=== PATIENT | male | born 1945 | race Caucasian/White ===

== ENCOUNTER 2021-12-08 13:21 | Outpatient (CLI) | payer SELFPAY ==
[2021-12-08 13:28] VITALS: BMI 25.1
[2021-12-08 15:08] VITALS: BP 109/64; PULSE 65; RESP 18; TEMP 36.6; O2SAT 96
== END 2021-12-08 13:22 | disposition home or self-care (01) ==
LOC: OPS 13:25
PROVIDERS: PCP Internal Medicine; Visit Provider Internal Medicine
DX: U07.1 COVID-19 (principal)
CPT/HCPCS: 96365

== ENCOUNTER 2022-01-10 08:07 | Emergency (ER) | payer MEDICARE, SELFPAY ==
[2022-01-10 08:28] VITALS: BP 137/84; PULSE 70; RESP 18; TEMP 37.2; O2SAT 96; BMI 25.0
--- NOTE | 2022-01-10 08:28 | CTR_ITS ---
PROCEDURE INFORMATION: Exam: CT Abdomen And Pelvis Without Contrast Exam date and time: 01/10/2022 8:28 AM Age: 76 years old Clinical indication: Abdominal pain; Flank; Left; Additional info: Flank pain TECHNIQUE: Imaging protocol: Computed tomography of the abdomen and pelvis without contrast. Total images: 321 Radiation optimization: All CT scans at this facility use at least one of these dose optimization techniques: automated exposure control; mA and/or kV adjustment per patient size (includes targeted exams where dose is matched to clinical indication); or iterative reconstruction. COMPARISON: CR XR KUB [id number] 03/16/2019 8:26 AM RADIATION DOSE METRICS: Total DLP (mGy-cm): 1128.63 FINDINGS: Diaphragm: A small hiatal hernia is present. Liver: Hepatic steatosis is evident. Gallbladder and bile ducts: Cholelithiasis is present without cholecystitis. No gallbladder wall thickening or pericholecystic fluid collection. Pancreas: Normal. No ductal dilation. Spleen: Normal. No splenomegaly. Adrenal glands: 1.8 cm benign right adrenal adenoma, no further followup necessary. Kidneys and ureters: Multiple bilateral renal cysts incompletely evaluated due to no IV contrast. 6 mm Largest left kidney stone which is nonobstructing and found in a left kidney that has multiple non-obstructing kidney stones. No ureteral calculi detected. Stomach and bowel: Unremarkable. No obstruction. No mucosal thickening. Appendix: No evidence of appendicitis. Intraperitoneal space: Unremarkable. No free air. No significant fluid collection. Vasculature: Unremarkable. No abdominal aortic aneurysm. Lymph nodes: Unremarkable. No enlarged lymph nodes. Urinary bladder: Multiple bladder calculi noted. There is nonspecific urinary bladder wall thickening, under distention versus cystitis. Reproductive: Prostatomegaly noted. Bones/joints: Bridging osteophytes are seen spanning the SI joints bilaterally. Spinal degenerative changes are evident. Disc degeneration is most notable at L5/S1. Spondylosis is noted with exuberant anterior and lateral osteophyte formation. Facet joint degenerative changes are present. Soft tissues: Postsurgical changes noted in the right inguinal region. CT/CT kidney stone [id number] IMPRESSION: 1. 6 mm Largest left kidney stone which is nonobstructing and found in a left kidney that has multiple non-obstructing kidney stones. No ureteral calculi detected. 2. Multiple bladder calculi noted. 3. There is nonspecific urinary bladder wall thickening, under distention versus cystitis. Consider urinalysis. 4. Prostatomegaly noted. 5. Cholelithiasis is present without cholecystitis. No gallbladder wall thickening or pericholecystic fluid collection. COMMENTS: Consistent with the [employer]'s Incidental Findings Committee white paper (J Am Ender Radiol 2017): For any incidental adrenal lesion greater than 1 cm but less than 4 cm classified in this report as benign, likely benign, or containing fat (including classification as an adenoma or myelolipoma), no follow-up imaging is recommended per consensus recommendations based on imaging criteria. Further lab evaluation could be pursued if warranted based on clinical findings.
--- NOTE | 2022-01-10 08:42 | ED_ITS ---
HPI - Male Genitourinary General: Chief complaint: Urogenital-Male Stated complaint: Kidney Stones Time Seen by Provider: 01/10/22 08:25 Source: patient Mode of arrival: ambulatory History of Present Illness: 76-year-old male presents emergency room with complaints of dysuria and suprapubic discomfort. He had been treated as an o utpatient for nephrolithiasis he actually passed a couple of stones. He also has some BPH. He states he has been urinating in small amounts with hematuria and discomfort. He does not have any discomfort except with urination. He is not on any blood thinners. He denies any fever sweats or chills. Onset (ago): day(s) Duration: constant Location: abdomen (Suprapubic) Severity: moderate Quality: aching Relieving factors: none Exacerbating factors: urination Associated symptoms: Reports dysuria and hematuria; Deny discharge, fevers/chills, nausea, rash, swelling, urinary incontinence, urinary retention, mass or vomiting Review of Systems Const: Denies: fever(s), chills, body aches, change in appetite, fatigue or malaise ENMT: Denies: throat pain, ear or mastoid pain, nasal discharge or nasal congestion Card: Denies: chest pain, edema, dyspnea on exertion or orthopnea Resp: Denies: dyspnea, productive cough or non-productive cough GI: Denies: nausea or vomiting : Reports: difficulty urinating, dysuria, urinary frequency, urinary urgency, difficulty starting urination, oliguria and hematuria; Denies: urinary incontinence Skin/Breast: Denies: rash or pruritus PFSH ED PFSH: Medical History Bladder stone BPH loc w urin obs/LUTS Elevated PSA Nephrolithiasis Social History Smoking and tobacco status: current every day smoker smokeless tobacco Smokeless tobacco user: chewing tobacco Alcohol intake: never Physical Exam Const: GENERAL APPEARANCE: cooperative and comfortable ORIENTATION/CONSCIOUSNESS: Yes awake, Yes oriented to person, Yes oriented to place and Yes oriented to time HENMT: COMMON NORMALS: normocephalic, atraumatic and hearing grossly normal bilaterally HEAD & SCALP: normocephalic and atraumatic Neck/C-Spine: COMMON NORMALS: no JVD Resp: COMMON NORMALS: normal respiratory effort, No retractions, No use of accessory muscles and clear to auscultation bilaterally AUSCULTATION: clear to auscultation bilaterally Cardio: COMMON NORMALS: no JVD, regular rate, regular rhythm and No murmurs present (Cardio) RATE: regular rate RHYTHM: regular rhythm GI: COMMON NORMALS: Soft to palpation and No hepatosplenomegaly present AUSCULTATION: Yes normoactive bowel sounds PALPATION: Yes Soft to palpation, No Tenderness to palpation present (GI), No Guarding due to palpation present (GI) and Yes No hepatosplenomegaly present : COMMON NORMALS: Yes no CVA tenderness BLADDER/KIDNEY EXAM: Yes no CVA tenderness Back/Pelvis: COMMON NORMALS: no CVA tenderness Extremity: COMMON NORMALS: normal to inspection, capillary refill normal, no clubbing, cyanosis or edema, no calf tenderness and no pedal edema Neuro: SENSORIUM/ORIENTATION: Yes oriented to person, Yes oriented to place and Yes oriented to time Skin: COMMON NORMALS: no rashes or lesions noted GENERAL SKIN EXAM: no rashes or lesions noted Course Vital Signs: Vital signs: Vital Signs Temperature 98.9 F 01/10/22 08:28 Pulse Rate 70 01/10/22 08:28 Respiratory Rate 18 01/10/22 08:28 Blood Pressure 120/71 01/10/22 10:35 Pulse Oximetry 96 01/10/22 08:28 MDM - Male Medical Decision Making Significantly large prostate large number of bladder stones. Reviewed imaging with Dr. Flanagan will place Martins to prevent urinary retention. We will put hydrocodone for pain Zofran as needed for nausea he has a follow-up appoint with Dr. Flanagan on Wednesday. Dr. Flanagan will make further plans. Discussed with the patient that if they are not able to get the bladder to drain regularly should return. Continue taking tamsulosin twice daily. Medical Records I reviewed the patient's medical records. Lab Data I reviewed the patient's lab results. : 01/10/22 08:56 01/10/22 08:56 Radiology Impressions Abdomen/Pelvis CT 01/10/22 08:28 IMPRESSION: 1. 6 mm Largest left kidney stone which is nonobstructing and found in a left kidney that has multiple non-obstructing kidney stones. No ureteral calculi detected. 2. Multiple bladder calculi noted. 3. There is nonspecific urinary bladder wall thickening, under distention versus cystitis. Consider urinalysis. 4. Prostatomegaly noted. 5. Cholelithiasis is present without cholecystitis. No gallbladder wall thickening or pericholecystic fluid collection. COMMENTS: Consistent with the [employer]'s Incidental Findings Committee white paper (J Am Ender Radiol 2017): For any incidental adrenal lesion greater than 1 cm but less than 4 cm classified in this report as benign, likely benign, or containing fat (including classification as an adenoma or myelolipoma), no follow-up imaging is recommended per consensus recommendations based on imaging criteria. Further lab evaluation could be pursued if warranted based on clinical findings. Laboratory Results WBC 9.7 10^3/uL (4.0-10.0) 01/10/22 08:56 RBC 5.47 10^6/uL (4.1-5.3) H 01/10/22 08:56 Hgb 15.5 g/dL (11.7-16.6) 01/10/22 08:56 Hct 48.9 % (42.0-52.0) 01/10/22 08:56 MCV 89.4 fl (80-94) 01/10/22 08:56 MCH 28.3 pg (28.0-34.0) 01/10/22 08:56 MCHC 31.7 g/dL (30.0-36.0) 01/10/22 08:56 RDW 14.3 % (12.1-15.1) 01/10/22 08:56 Plt Count 174 10^3/cmm (130-400) 01/10/22 08:56 MPV 11.6 fL (7.4-10.4) H 01/10/22 08:56 Neut % (Auto) 72.8 % 01/10/22 08:56 Lymph % (Auto) 17.7 % 01/10/22 08:56 [place] % (Auto) 6.0 % 01/10/22 08:56 Eos % (Auto) 2.6 % 01/10/22 08:56 Baso % (Auto) 0.5 % 01/10/22 08:56 Neut # (Auto) 7.09 10^3/uL (1.8-7.7) 01/10/22 08:56 Lymph # (Auto) 1.7 10^3/uL (0.8-4.8) 01/10/22 08:56 [place] # (Auto) 0.6 10^3/uL (0.2-0.9) 01/10/22 08:56 Eos # (Auto) 0.3 10^3/uL (0.0-0.8) 01/10/22 08:56 Baso # (Auto) 0.1 10^3/uL (0.0-0.1) 01/10/22 08:56 Nucleated RBC % (auto) 0 % 01/10/22 08:56 Nucleated RBCs # 0.0 /100WBC 01/10/22 08:56 Sodium 141 mmol/L (136-145) 01/10/22 08:56 Potassium 4.1 mmol/L (3.5-5.1) 01/10/22 08:56 Chloride 101 mmol/L (98-107) 01/10/22 08:56 Carbon Dioxide 28 mmol/L (22-29) 01/10/22 08:56 Anion Gap 16.1 (5-19) 01/10/22 08:56 BUN 16 mg/dL (8-23) 01/10/22 08:56 Creatinine 1.3 mg/dL (0.7-1.2) H 01/10/22 08:56 GFR Calculation Not Reportable 01/10/22 08:56 Glucose 124 mg/dL (65-115) H 01/10/22 08:56 Calculated Osmolality 295 mOsm/kg (285-295) 01/10/22 08:56 Calcium 9.4 mg/dL (8.5-10.5) 01/10/22 08:56 Urine Color Dark yellow (Yellow) 01/10/22 08:52 Urine Appearance Cloudy (CLEAR) 01/10/22 08:52 Urine pH 5 (5-7) 01/10/22 08:52 Ur Specific [place] 1.025 (1.005-1.030) 01/10/22 08:52 Urine Protein 3+ (Negative) H 01/10/22 08:52 Urine Glucose (UA) Norm (Normal) 01/10/22 08:52 Urine Ketones 1+ (Negative) H 01/10/22 08:52 Urine Blood 3+ (Negative) H 01/10/22 08:52 Urine Nitrate Negative (Negative) 01/10/22 08:52 Urine Bilirubin Neg (Negative) 01/10/22 08:52 Urine Urobilinogen Norm mg/dL (Negative) 01/10/22 08:52 Ur Leukocyte Esterase 1+ (Negative) H 01/10/22 08:52 Urine RBC Too numerous to cnt /hpf (0-2) H 01/10/22 08:52 Urine WBC 5-10 /hpf (0-5) H 01/10/22 08:52 Ur Squamous Epith Cells None /hpf (0-5) 01/10/22 08:52 Amorphous Sediment 1+ /hpf 01/10/22 08:52 Urine Bacteria 1+ /hpf (NONE) H 01/10/22 08:52 Discharge Plan Discharge Patient Disposition: Home Clinical Impression: Bladder stone, BPH loc w urin obs/LUTS, Nephrolithiasis Condition: Stable Prescriptions: New hydrocodone-acetaminophen 5-325 mg tablet 1 tab PO Q6H PRN (Reason: pain) Qty: 25 0RF Zofran 4 mg tablet 4 mg PO Q6H PRN (Reason: nausea and vomiting) Qty: 20 0RF tamsulosin 0.4 mg capsule 0.4 mg PO DAILY Qty: 30 0RF No Action Zyrtec 10 mg Tablet 10 mg PO DAILY PRN (Reason: Allergy Symptoms) 0RF levothyroxine 88 mcg Tablet 88 mcg PO DAILY 0RF Flomax 0.4 mg Capsule 0.4 mg PO BID 0RF Prilosec 20 mg Capsule,Delayed Release(Dr/Ec) 20 mg PO DAILY 0RF lisinopril-hydrochlorothiazide 10-12.5 mg Tablet 1 tab PO DAILY 0RF cefuroxime axetil 500 mg Tablet 500 mg PO BID 0RF Rx Instructions: x 7 days Vitamin D3 125 mcg (5,000 unit) Tablet 125 mcg PO DAILY 0RF Discharge Orders: Discharge ED (Routine); Ordered 01/10/22 Ordered By: Roger Villarreal Referrals: Jessica Schulte MD [Primary Care Provider] - Discharge Diet: Usual diet Discharge Activity: Resume usual activity Patient Instructions: Opioid Safety Activity Restrictions/Additional Instructions: Keep follow-up appointment with Dr. Flanagan as planned. If your catheter is not draining regularly return to the emergency room Coding Level of Care Code ED [employer] Director for Maddie Fwjanny Exam Comprehensive
[2022-01-10 09:12] LABS: Basophils # 0.1 10^3/uL (0.0-0.1); Basophils % 0.5 %; Eosinophils # 0.3 10^3/uL (0.0-0.8); Eosinophils % 2.6 %; Hematocrit 48.9 % (42.0-52.0); Hemoglobin 15.5 g/dL (11.7-16.6); Lymphocytes # 1.7 10^3/uL (0.8-4.8); Lymphocytes % 17.7 %; Mean Corpuscular HGB Conc 31.7 g/dL (30.0-36.0); Mean Corpuscular Hemoglobin 28.3 pg (28.0-34.0); Mean Corpuscular Volume 89.4 fl (80-94); Mean Platelet Volume 11.6 fL (7.4-10.4); Monocytes # 0.6 10^3/uL (0.2-0.9); Neutrophils # 7.09 10^3/uL (1.8-7.7); Neutrophils % 72.8 %; Nucleated Red Blood Cells % 0 %; Platelet Count 174 10^3/cmm (130-400); Red Blood Count 5.47 10^6/uL (4.1-5.3); Red Cell Distribution Width 14.3 % (12.1-15.1); White Blood Count 9.7 10^3/uL (4.0-10.0)
[2022-01-10 09:20] LABS: Glucose Urine UA Norm (Normal); Ketones Urine 1+ (Negative); Protein Urine 3+ (Negative); Specific Gravity, Urine 1.025 (1.005-1.030); Urine Appearance Cloudy (CLEAR); Urine Color Dark Yellow (Yellow); pH Urine 5 (5-7)
[2022-01-10 09:21] LABS: Add Urine Culture? Yes; Add Urine Microscopic? YES; Amorphous Sediment Urine 1+ /hpf; Bacteria Urine 1+ /hpf; Bilirubin Urine Neg (Negative); Blood Urine 3+ (Negative); Leukocyte Esterase Urine 1+ (Negative); Nitrate Urine Negative (Negative); RBC Urine TOO NUMEROUS TO CNT /hpf (0-2); Urobilinogen Urine Norm (Negative)
[2022-01-10 09:37] LABS: Anion Gap 16.1 (5-19); Blood Urea Nitrogen 16 mg/dL (8-23); Calcium 9.4 mg/dL (8.5-10.5); Carbon Dioxide 28 mmol/L (22-29); Chloride 101 mmol/L (98-107); Glucose 124 mg/dL (65-115); Osmolality Calculated 295 mOsm/kg (285-295); Potassium 4.1 mmol/L (3.5-5.1); Sodium 141 mmol/L (136-145)
--- NOTE | 2022-01-10 10:22 | P.MISC_ITS ---
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 ?Very large but benign feeling NEFTALI. ?PSA at time of biopsy = 8.0. ?Repeat July 2015 = 7.4. BLADDER CALCULUS August 2015 Approximally 6 or 7 bladder stones identified on cystoscopy during workup for gross hematuria. Tx: ?CYSTOLITHALOPAXY: large number of stones in the bladder. Transient POSTOP RETENTION. BPH/OBSTRUCTION CURRENT VISIT 01/10/2022: UROLOGY phone note (patient in the ED) Spoke with Dr. Will. Patient was complaining mostly of suprapubic discomfort and passing multiple bladder stones. CT scan was performed for hematuria. -No upper urinary tract obstruction -Huge prostate with multiple (dozens) of bladder stones with some probably in the prostatic urethra No evidence of sepsis. Plan was to treat pain, place Martins catheter for relief, keep appointment for Wednesday. Can make plans then for cystolitholapaxy etc. He is scheduled for clinic appointment on 01/12/2022 PRIOR VISITS 03/16/2019: UROLOGY follow-up visit Last visit was March 2017 for follow-up of urolithiasis with a history of prior cystolitholapaxy August 2015. KUB showed no recurrent bladder stones or renal stones. No progressive lower urinary tract symptoms. He was content with his voiding status. Discussed if doing well on follow-up visit would recommend no further follow-up. Back now for follow-up. Current data UA: Clear KUB: No evidence of stones bladder or kidneys Symptoms: Voiding well. ?Good force of stream. ?Feels like he empties. ?No gross hematuria etc. PVR was 22 mL Discussion: I think is a reasonable candidate now for return to clinic as needed status given his protracted follow-up. ?Without recurrence of stones. I'll see him back if he feels like there are any symptoms that are concerning to him or Dr. Schulte is concern. 03/16/2017: UROLOGY follow-up visit Last visit 12/19/2015 status post cystolitholapaxy 09/02/2015 followed by indwelling catheter placement due to clot retention; pass voiding trial 09/09/2015. Cystoscopy revealed a huge prostate. Was doing well with low symptoms. Current data UA: Clear KUB: No recurrent bladder stones or renal stones Symptoms: Minimal lower urinary tract symptoms. ?No gross hematuria or flank pain. ?No recurrent obstruction or retention. ?Content with current status. Discussion: Doing very well. ?Recheck in 2 years with KUB. ?If doing well that point no further follow-up. Call for increasing symptoms. ?Reviewed symptoms of concern
[2022-01-10 10:35] VITALS: BP 120/71
== END 2022-01-10 11:27 | disposition home or self-care (01) ==
PROVIDERS: Emergency Provider Family Medicine; PCP Internal Medicine
DX: N40.1 Benign prostatic hyperplasia with lower urinary tract symptoms (principal); N13.8 Other obstructive and reflux uropathy; N20.0 Calculus of kidney; N21.0 Calculus in bladder; F17.220 Nicotine dependence, chewing tobacco, uncomplicated; Z87.442 Personal history of urinary calculi
CPT/HCPCS: 51702; 74176; 80048; 81001; 85025; 87086; 99283

== ENCOUNTER 2022-01-11 17:03 | Emergency (ER) | payer MEDICARE, SELFPAY ==
[2022-01-11 17:13] VITALS: BP 132/86; PULSE 95; RESP 16; TEMP 36.4; O2SAT 92; BMI 24.8
--- NOTE | 2022-01-11 17:27 | ED_ITS ---
Documented by User: OBDULIO Vogel 01/11/22 18:50 HPI - Male Genitourinary General: Chief complaint: Urogenital-Male Stated complaint: Cathiter not working Time Seen by Provider: 01/11/22 17:18 History of Present Illness: Patient states catheter is quit draining. Associated symptoms: Deny nausea or vomiting Review of Systems Const: Denies: fever(s), chills or body aches Eyes: Denies: eye discomfort ENMT: Denies: throat pain Card: Denies: chest pain Resp: Denies: dyspnea GI: Denies: abdominal pain, nausea or vomiting : Reports: other (Complains of bladder pain on this Martins catheter not draining.) Skin/Breast: Denies: rash Neuro: Denies: headache(s) Psych: Denies: depression or suicidal ideation PFS ED PFSH: Medical History Bladder stone BPH loc w urin obs/LUTS Elevated PSA Nephrolithiasis Social History Smoking and tobacco status: current every day smoker smokeless tobacco Smokeless tobacco user: chewing tobacco Alcohol intake: never Physical Exam Const: COMMON NORMALS: no acute distress, patient oriented x3 and alert HENMT: COMMON NORMALS: normocephalic and external ears normal HEAD & SCALP: normocephalic EXTERNAL EAR: Yes external ears normal Eye: COMMON NORMALS: EOMs intact bilaterally Neck/C-Spine: COMMON NORMALS: no JVD Resp: COMMON NORMALS: normal respiratory effort and No use of accessory muscles Cardio: COMMON NORMALS: no JVD GI: INSPECTION: Yes normal to inspection : OTHER: Tenderness suprapubic area. Extremity: COMMON NORMALS: normal to inspection and full ROM Neuro: COMMON NORMALS: patient oriented x3 SENSORIUM/ORIENTATION: Yes alert Psych: COMMON NORMALS: mental status grossly normal Skin: COMMON NORMALS: no rashes or lesions noted GENERAL SKIN EXAM: no rashes or lesions noted Course Vital Signs: Vital signs: Vital Signs Temperature 97.6 F 01/11/22 17:13 Pulse Rate 95 01/11/22 17:13 Respiratory Rate 16 01/11/22 17:13 Blood Pressure 128/72 01/11/22 18:35 Pulse Oximetry 92 01/11/22 17:13 MDM - Male Medical Decision Making Blockage of Martins catheter from bladder stones. Martins catheter was removed, new one inserted patient able to urinate. Discharge Plan Discharge Patient Disposition: Home Clinical Impression: Bladder stone, BPH loc w urin obs/LUTS Condition: Stable Prescriptions: No Action hydrocodone-acetaminophen 5-325 mg tablet 1 tab PO Q6H PRN (Reason: pain) Qty: 25 0RF Zofran 4 mg tablet 4 mg PO Q6H PRN (Reason: nausea and vomiting) Qty: 20 0RF tamsulosin 0.4 mg capsule 0.4 mg PO DAILY Qty: 30 0RF Zyrtec 10 mg Tablet 10 mg PO DAILY PRN (Reason: Allergy Symptoms) 0RF levothyroxine 88 mcg Tablet 88 mcg PO DAILY 0RF Flomax 0.4 mg Capsule 0.4 mg PO BID 0RF Prilosec 20 mg Capsule,Delayed Release(Dr/Ec) 20 mg PO DAILY 0RF lisinopril-hydrochlorothiazide 10-12.5 mg Tablet 1 tab PO DAILY 0RF cefuroxime axetil 500 mg Tablet 500 mg PO BID 0RF Rx Instructions: x 7 days Vitamin D3 125 mcg (5,000 unit) Tablet 125 mcg PO DAILY 0RF Discharge Orders: Discharge ED (Routine); Ordered 01/11/22 Ordered By: Jamshid Monae Referrals: Jessica Schulte MD [Primary Care Provider] - Discharge Diet: Usual diet Discharge Activity: Resume usual activity Activity Restrictions/Additional Instructions: Follow-up with Dr. Flanagan as manuel Butler. Coding Level of Care Code ED Traffic Control Officer for Chg Fwd Exam Comprehensive Documented by User: Gerardo Narvaez, 01/11/22 19:00 HPI - Male Genitourinary General: Chief complaint: Urogenital-Male Stated complaint: Cathiter not working Time Seen by Provider: 01/11/22 17:18 PFSH ED PFSH: Medical History Bladder stone BPH loc w urin obs/LUTS Elevated PSA Nephrolithiasis Social History Smoking and tobacco status: current every day smoker smokeless tobacco Sm okeless tobacco user: chewing tobacco Alcohol intake: never Course Vital Signs: Vital signs: Vital Signs Temperature 97.6 F 01/11/22 17:13 Pulse Rate 95 01/11/22 17:13 Respiratory Rate 16 01/11/22 17:13 Blood Pressure 128/72 01/11/22 18:35 Pulse Oximetry 92 01/11/22 17:13 MDM - Male Medical Decision Making Blockage of Martins catheter from bladder stones. Martins catheter was removed, new one inserted patient able to urinate. This patient was originally seen by OBDULIO Rodriguez.? I agree with his history, evaluation, and treatment. Discharge Plan Discharge Patient Disposition: Home Clinical Impression: Bladder stone, BPH loc w urin obs/LUTS Condition: Stable Prescriptions: No Action hydrocodone-acetaminophen 5-325 mg tablet 1 tab PO Q6H PRN (Reason: pain) Qty: 25 0RF Zofran 4 mg tablet 4 mg PO Q6H PRN (Reason: nausea and vomiting) Qty: 20 0RF tamsulosin 0.4 mg capsule 0.4 mg PO DAILY Qty: 30 0RF Zyrtec 10 mg Tablet 10 mg PO DAILY PRN (Reason: Allergy Symptoms) 0RF levothyroxine 88 mcg Tablet 88 mcg PO DAILY 0RF Flomax 0.4 mg Capsule 0.4 mg PO BID 0RF Prilosec 20 mg Capsule,Delayed Release(Dr/Ec) 20 mg PO DAILY 0RF lisinopril-hydrochlorothiazide 10-12.5 mg Tablet 1 tab PO DAILY 0RF cefuroxime axetil 500 mg Tablet 500 mg PO BID 0RF Rx Instructions: x 7 days Vitamin D3 125 mcg (5,000 unit) Tablet 125 mcg PO DAILY 0RF Discharge Orders: Discharge ED (Routine); Ordered 01/11/22 Ordered By: Jamshid Monae Referrals: Jessica Schulte MD [Primary Care Provider] - Discharge Diet: Usual diet Discharge Activity: Resume usual activity Activity Restrictions/Additional Instructions: Follow-up with Dr. Flanagan as scheduled Luke. Coding Level of Care Code ED Traffic Control Officer for Chg Fwd Exam Comprehensive
[2022-01-11 18:35] VITALS: BP 128/72
== END 2022-01-11 18:37 | disposition home or self-care (01) ==
PROVIDERS: Emergency Provider Nurse Practitioner Family; PCP Internal Medicine
DX: N21.0 Calculus in bladder (principal); N40.1 Benign prostatic hyperplasia with lower urinary tract symptoms; N13.8 Other obstructive and reflux uropathy; Z87.442 Personal history of urinary calculi; F17.220 Nicotine dependence, chewing tobacco, uncomplicated
CPT/HCPCS: 51702; 99283

== ENCOUNTER 2022-01-12 15:05 | Outpatient (CLI) | payer MEDICARE, SELFPAY ==
--- NOTE | 2022-01-12 15:27 | XRR_ITS ---
PROCEDURE INFORMATION: Exam: XR Abdomen Exam date and time: 01/12/2022 3:27 PM Age: 76 years old Clinical indication: Condition or disease; Kidney or ureter condition; Calculus (stone) in kidney and calculus (stone) in ureter; Prior surgery; Surgery type: Stents; Additional info: Stones, kub ozh 01/12/22 @ 3:00 pm appt to follow TECHNIQUE: Imaging protocol: XR of the abdomen. Views: Frontal supine view of the abdomen. 1 View. COMPARISON: CT kidney stone [id number] 01/10/2022 9:18 AM FINDINGS: Gastrointestinal tract: Normal. No bowel dilation. Bones/joints: Unremarkable. XR/XR KUB [id number] IMPRESSION: No acute findings.
== END 2022-01-12 15:06 | disposition home or self-care (01) ==
LOC: RAD 15:11
PROVIDERS: PCP Internal Medicine; Visit Provider Urology
DX: N21.0 Calculus in bladder (principal)
CPT/HCPCS: 74018; 87635

== ENCOUNTER 2022-01-14 16:27 | Observation (INO) | payer MEDICARE, SELFPAY ==
[2022-01-13 12:38] VITALS: BMI 24.8
[2022-01-14] VITALS (20 sets, daily range): BP systolic 117–152; BP diastolic 56–87; PULSE 53–95; RESP 16–18; TEMP 36.2–37.9; O2SAT 93–99
[2022-01-14] MEDS: sodium chloride 0.9% 1,000 ML 30 ML IV (07:24)
--- NOTE | 2022-01-14 07:54 | ANES.PREANE2 ---
Pre-Anesthetic Assessment Height/Weight: Height 1.8 m Weight 80.739 kg Temp Pulse Resp BP Pulse Ox 97.3 F L 58 L 18 132/74 96 01/14/22 07:01 01/14/22 07:01 01/14/22 07:01 01/14/22 07:01 01/14/22 07:01 Preop Diagnosis: Multiple bladder stones Operation Date: 01/14/22 08:15 Proposed Procedures p Cystolitholapaxy 60337/n21.0(Not Applicable) - Yoan Flanagan MD s Cystoscopy(Not Applicable) - Yoan Flanagan MD Familial anesthetic complications: none Was Beta Isis taken within 24 hours: N/A Was Clonidine taken within 24 hours: N/A Last intake: Intake Last Liquid Date 01/13/22 Last Liquid Time 21:00 Last Solid Date 01/13/22 Last Solid Time 21:00 Social Tobacco and No alcohol Exam alert, oriented x 3, clear to auscultation bilaterally and regular rate & rhythm Airway Mallampati: Class III Dentition: other (none) Comments: Comments: full clifford Pulmonary Chronic Obstructive Pulmonary Disease CV/HEM Hypertension GI Gastroesophageal Reflux Disease Metabolic Thyroid Disease Anesthetic Plan ASA status: 3 Anesthesia: General Medications/Allergies Home Medications Medication Instructions Recorded Confirmed Last Taken Type cefuroxime axetil 500 mg tablet 500 mg PO BID 01/10/22 01/14/22 01/14/22 History cetirizine 10 mg tablet (Zyrtec) 10 mg PO DAILY PRN 01/10/22 01/14/22 01/14/22 History cholecalciferol (vitamin D3) 125 125 mcg PO DAILY 01/10/22 01/14/22 01/14/22 History mcg (5,000 unit) tablet (Vitamin D3) hydrocodone 5 mg-acetaminophen 325 1 tab PO Q6H PRN #25 tab 01/10/22 01/14/22 01/13/22 Rx mg tablet levothyroxine 88 mcg tablet 88 mcg PO DAILY 01/10/22 01/14/22 01/14/22 History lisinopril 10 1 tab PO DAILY 01/10/22 01/14/22 01/13/22 History mg-hydrochlorothiazide 12.5 mg tablet omeprazole 20 mg capsule,delayed 20 mg PO DAILY 01/10/22 01/14/22 01/14/22 History release ondansetron HCl 4 mg tablet 4 mg PO Q6H PRN #20 tab 01/10/22 01/13/22 Unknown Rx (Zofran) tamsulosin 0.4 mg capsule (Flomax) 0.4 mg PO BID 01/10/22 01/14/22 01/14/22 History Allergies Allergy/AdvReac Type Severity Reaction Status Date / Time Penicillins Allergy Unknown Verified 01/13/22 12:35 Current Medications Generic Name Dose Route Start Last Admin Trade Name Freq PRN Reason Stop Dose Admin Sodium Chloride 1,000 mls @ 30 mls/hr 01/14/22 07:00 01/14/22 07:24 Sodium Chloride 0.9% IV 01/15/22 06:59 30 mls/hr .Q24H AXEL Administration PFSH Anesthesia Medical History Bladder stone BPH loc w urin obs/LUTS Elevated PSA Nephrolithiasis Family History Father , at age 93 No problems noted. Mother , at age 71 Cancer stomach Social History Smoking and tobacco status: current every day smoker smokeless tobacco Smokeless tobacco user: chewing tobacco Alcohol intake: never Marital status: Current occupational status: retired History of recent travel: No Data Anesthesia Cardiac Studies: No Data to Display
[2022-01-14] MEDS: levofloxacin-dextrose 5 % 500 MG/100 ML PREMIX 100 MG IV (07:59)
--- NOTE | 2022-01-14 08:05 | P.HPUD_ITS ---
Surgery/Procedure H&P Update DATE OF PROCEDURE: January 14, 2022 DATE H&P PERFORMED: 01/12/22 H&P UPDATE INFORMATION: I have reviewed H&P completed within last 30 days, I have examined patient prior to procedure, No changes to prior documentation and H&P is in [facility]MR on date indicated PREOP DIAGNOSIS: Multiple bladder stones PLANNED PROCEDURE: Operation Date: 01/14/22 08:15 Proposed Procedures p Cystolitholapaxy 41054/n21.0(Not Applicable) - Yoan Flanagan MD s Cystoscopy(Not Applicable) - Yoan Flanagan MD
--- NOTE | 2022-01-14 08:06 | PM.OP ---
Operative Report Date of procedure: January 14, 2022 Pre-op diagnosis: Preop Diagnosis Multiple bladder stones Post-op diagnosis: Multiple bladder stones Procedure done: Cystolitholapaxy >3 cm. Pathology: Stone fragments Surgeon: Masha Estimated blood loss: Minimal Urine output: Not measured Complications: None Findings: Many many stones in the bladder. Some moderate size. Very large prostate. Brief History: Mr. Gilbert is a delightful 76-year-old white male with a history of prostatic enlargement with bladder outlet obstructive symptoms on TAMSULOSIN 0.4 mg p.o. twice daily. He has a history of prior bladder stones requiring cystolitholapaxy. Recently developed gross hematuria as well as strained urea. Was passing intermittent very small BB sized stones. Went to the emergency room and had a catheter placed with hopes of reducing his discomfort but actually increased his discomfort and for that reason it was removed in my office. Scheduled for cystolitholapaxy. Procedure: After routine preoperative evaluation examination and obtaining of informed consent he was taken to the operating suite on 01/14/2022 where general anesthesia was administered without difficulty after appropriate timeout was performed, SCDs confirmed to be functioning, preoperative antibiotics administered, beta-brandon protocol confirmed. Prepped and draped in usual sterile fashion in dorsolithotomy position paying careful attention to avoiding pressure points. 21 Ukrainian cystoscope with 30 degree lens was introduced into the urethra meatus and advanced into the bladder without difficulty. The bladder was systematically examined. Urethra was normal. Prostate was very enlarged. He had multiple stones in the bladder of varying sizes. A 365 ?m thulium superpulse laser fiber was then utilized to fragment the larger stones into smaller pieces that could be flushed through the scope with an Ellik evacuator. Eventually all the stones were cleared. He had about 7 moderate sized stones greater than 1.5 cm and multiple other smaller stones. The large prostate was very friable and for that reason at the completion of the procedure and left the catheter in. A 22 Ukrainian three-way Martins catheter was left indwelling with CBI to help prevent clot formation. Because of the catheter it was decided to have the patient be admitted. PLANS: 1. Admit to observation status with Martins catheter 2. Anticipate voiding trial in the morning and discharge tomorrow
--- NOTE | 2022-01-14 12:50 | ANE.PACU2 ---
Inpatient post-anesthesia follow up: Airway intact: Yes Vital signs: Temperature 97.2 F Pulse Rate 56 Respiratory Rate 18 Blood Pressure 123/74 Pulse Oximetry 95 Oxygen Delivery Me thod Room Air Oxygen Flow Rate 6 Fraction of Inspir ed Oxygen Hydration adequate: Yes Nausea and vomiting: No Pain level: 2 Mental status: Baseline
[2022-01-14] MEDS: famotidine 20 mg/2 mL INJ IVP (17:21)
[2022-01-14] MEDS: dextrose 5%-ns + KCl 20 20 MEQ/1,000 ML BAG 50 MEQ IV (17:21)
[2022-01-14] MEDS: docusate sodium 100 mg Capsule PO (17:21)
[2022-01-14] MEDS: tamsulosin 0.4 mg Capsule PO (17:21)
--- NOTE | 2022-01-14 19:25 | PC.NURSE ---
PATIENT HAS DONE VERY WELL SINCE ARRIVING TO THE FLOOR. IRRIGATION TITRATED TO A VERY SLOW DRIP. URINE LIGHT PINK TO CLEAR IN COLOR. PATIENT HAS MINIMAL COMPLAINTS OF PAIN. GOOD PO INTAKE. NO COMPLAINTS AT THIS TIME.
[2022-01-15 03:18] VITALS: BP 128/74; PULSE 52; RESP 18; TEMP 36.8; O2SAT 96
[2022-01-15] MEDS: famotidine 20 mg/2 mL INJ IVP (05:26)
--- NOTE | 2022-01-15 07:12 | P.DS_ITS ---
Discharge Providers Date of Admission: 01/14/22 16:27 Date of Discharge: January 15, 2022 Attending Provider at Admission: Yoan Flanagan MD Attending Provider at Discharge: Yoan Flanagan MD Primary Care Provider: Jessica Schulte MD Diagnoses at Discharge Discharge Diagnosis (1) Bladder stone: Status: Acute (2) BPH loc w urin obs/LUTS: Status: Acute Reason for Visit Reason for Visit: N21.0 Brief History: Admitted for cystolitholapaxy. Hospital Course Hospital Course He was admitted through Outpatient Surgery for cystolitholapaxy. Initially he was anticipate on being discharged from outpatient surgery to home. Unfortunately he did have more oozing from the prostatic mucosa then was anticipated. It was not dangerous but would be too much to allow him to go home with or without Martins catheter. For that reason CBI was initiated and tapered off overnight. On the morning of postoperative day #1 his urine was clear with CBI turned off. He was managing the catheter well and back to baseline Recommended that he continue the catheter discharge, start FINASTERIDE for long- term treatment of BPH/obstruction but as well short-term for reducing prostatic bleeding. We will perform a voiding trial on 01/19/2022. Physical Exam Narrative: Alert and oriented no acute distress Abdomen is soft nontender no palpable masses organomegaly appreciated. Urine is clear yellow. Normal genitourinary exam. Good range of motion. No focal deficits. Urinary Catheter Management: Martins: Cath Placed During This Visit: yes Reason for Continuing Indwelling Catheter: Perioperative Use in Selected Surgeries Urinary Catheter Date of Insertion: 01/14/22 Urinary Catheter Time of Insertion: 09:31 Discharge Data Studies Completed and Pending Pending at discharge Category Date Time Status Pathology: Surgical [PTH] Routine Pth 01/14/22 09:34 Received Procedures Performed Cystolitholapaxy >2.5 cm Vitals Last Vital Signs Temp 98.2 F 01/15/22 03:18 Pulse 52 L 01/15/22 03:18 Resp 18 01/15/22 03:18 BP 128/74 01/15/22 03:18 Pulse Ox 96 01/15/22 03:18 Discharge Plan Discharge Patient Disposition: Home Condition: Stable Prescriptions: New finasteride 5 mg tablet 5 mg PO DAILY Qty: 90 2RF Continued hydrocodone-acetaminophen 5-325 mg tablet 1 tab PO Q6H PRN (Reason: pain) Qty: 25 0RF ondansetron HCl [Zofran] 4 mg tablet 4 mg PO Q6H PRN (Reason: nausea and vomiting) Qty: 20 0RF cetirizine [Zyrtec] 10 mg Tablet 10 mg PO DAILY PRN (Reason: Allergy Symptoms) 0RF levothyroxine 88 mcg Tablet 88 mcg PO DAILY 0RF tamsulosin [Flomax] 0.4 mg Capsule 0.4 mg PO BID 0RF omeprazole 20 mg Capsule,Delayed Release(Dr/Ec) 20 mg PO DAILY 0RF lisinopril-hydrochlorothiazide 10-12.5 mg Tablet 1 tab PO DAILY 0RF cefuroxime axetil 500 mg Tablet 500 mg PO BID 0RF Rx Instructions: x 7 days cholecalciferol (vitamin D3) [Vitamin D3] 125 mcg (5,000 unit) Tablet 125 mcg PO DAILY 0RF Discharge Orders: Discharge Order (Routine); Ordered 01/14/22 Ordered By: Yona Flanagan Referrals: Yoan Flanagan MD [Physician] - 01/19/22 (Voiding trial) Discharge Diet: Usual diet Discharge Activity: Increase activity as tolerated and Limit activity as instructed Activity Restrictions/Additional Instructions: 1. Drink a lot of fluids and avoid strenuous activity 2. We will do a voiding trial in the office on 01/19/2022. Discharge Attestations Time Spent in Discharge Care*: less than 30 min Quality Metrics Clinical Quality Measures [ No reported AMI, CVA or VTE this stay] Coding Level of Care Code Acute Chg FW DC note Diagnoses Bladder stone N21.0 BPH loc w urin obs/LUTS N40.1
[2022-01-15 07:42] VITALS: BP 128/70; PULSE 49; RESP 18; TEMP 36.4; O2SAT 96
[2022-01-15] MEDS: docusate sodium 100 mg Capsule PO (09:00)
[2022-01-15] MEDS: hydroCHLOROthiazide 25 mg Tablet 12.5 MG PO (09:00)
[2022-01-15] MEDS: levothyroxine 88 mcg Tablet PO (09:00)
[2022-01-15] MEDS: lisinopril 10 mg Tablet PO (09:00)
[2022-01-15] MEDS: tamsulosin 0.4 mg Capsule PO (09:00)
[2022-01-15] MEDS: pantoprazole DR 40 mg Tablet PO (09:00)
--- NOTE | 2022-01-15 09:02 | PC.NURSE ---
DISCHARGE EDUCATION PROVIDED TO PATIENT ON HOW TO MANAGE AND CARE FOR NAVARRO CATHETER, PT STATES HE HAS WENT HOME WITH ONE BEFORE. PT UNDERSTANDS INSTRUCTIONS. DISCHARGE FOLLOW UP APPOINTMENTS MADE AND PT AND AWARE. IV DISCONTINUED, ALL QUESTIONS ANSWERED BY THIS NURSE. PT TAKEN OUT TO PRIVATE VEHICLE VIA WHEELCHAIR.
[2022-01-15 09:07] VITALS: BP 128/70; PULSE 62; RESP 18; TEMP 36.4; O2SAT 96
--- NOTE | 2022-01-15 09:21 | PC.NURSE ---
PATIENT PROVIDED WITH URINARY LEG BAG AND EXTRA NIGHT DRAINAGE BAG AT DISCHARGE
[2022-01-20 00:58] LABS: Stone Source BLADDER STONES
== END 2022-01-15 09:08 | disposition home or self-care (01) ==
LOC: MEDSURG 19:52
PROVIDERS: Admitting Provider Urology; PCP Internal Medicine; Visit Provider Urology
PROC: 0TCB8ZZ Extirpation of Matter from Bladder, Via Natural or Artificial Opening Endoscopic (ICD-10-PCS; CPT 52318; principal; 2022-01-14 08:10)
PROC: 0TJB8ZZ Inspection of Bladder, Via Natural or Artificial Opening Endoscopic (ICD-10-PCS; CPT 52000; 2022-01-14 08:10)
DX: N21.0 Calculus in bladder (principal); N40.1 Benign prostatic hyperplasia with lower urinary tract symptoms; N13.8 Other obstructive and reflux uropathy; I10 Essential (primary) hypertension; J44.9 Chronic obstructive pulmonary disease, unspecified; F17.220 Nicotine dependence, chewing tobacco, uncomplicated
CPT/HCPCS: 52318; 82365; 88300; G0378; J1956; J2405; J2704; J3010; J3490; J7030

== ENCOUNTER 2022-05-05 14:56 | Outpatient (CLI) | payer MEDICARE, SELFPAY ==
--- NOTE | 2022-05-05 15:00 | XR_ITS ---
WS: [id number] Exam: XR KUB [id number] Date/Time of Exam: 05/05/2022 3:02 PM Reason For Exam: NEPHROLITHIASIS Several calcifications superimpose the left kidney and may represent renal stones. No bowel obstructi on or free air. No sign of organ enlargement. Bony changes in the lumbar spine suspicious for ankylos ing spondylitis. Partial fusion of the bilateral SI joints. XR/XR KUB [id number] IMPRESSION: 1. No acute abdominal process. 2. Calcification superimpose left kidney and may represent renal calculi. 3. Bony changes in the lumbar spine and sacroiliac joints suspicious for ankylo sing spondylitis.
== END 2022-05-05 14:57 | disposition home or self-care (01) ==
PROVIDERS: PCP Internal Medicine; Visit Provider Urology
DX: N20.0 Calculus of kidney (principal); R97.20 Elevated prostate specific antigen [PSA]; N40.1 Benign prostatic hyperplasia with lower urinary tract symptoms; N21.0 Calculus in bladder
CPT/HCPCS: 51741; 51798; 74018; 81003; 99213

== ENCOUNTER 2024-03-03 12:39 | Outpatient (CLI) | payer MEDICARE, SELFPAY ==
--- NOTE | 2024-03-03 12:43 | CT_ITS ---
WS: [id number] CT PARANASAL SINUSES without contrast HISTORY: OTHER ACUTE RECURRENT SINUSITIS TECHNIQUE: Contiguous 2.5 mm axial images obtained through the sinuses. Images are reconstructed in s agittal and coronal planes. All CT scans at [facility] use at least one of these dose optimiz ation techniques: automated exposure control; mA and/or kV adjustment per patient size (includes targ eted exams where dose is matched to clinical indication); or iterative reconstruction. DLP: Not available. Contrast: Omnipaque 350; 100 mL. COMPARISON: None available. Frontal sinuses: Well aerated frontal sinuses. Increased mucoperiosteal thickening beginning in the L EFT frontal ethmoid recess. Sphenoid sinus: Negative. Ethmoid sinuses: Moderate bilateral anterior and posterior ethmoid air cell mucoperiosteal disease. Maxillary sinus: Bilateral mucoperiosteal thickening, greater on the RIGHT than the LEFT. No air-flui d levels. Patient is status post FESS. Ostiomeatal unit: Widely patent ostiomeatal units. Ostiomeatal units have been widened. The LEFT osti omeatal unit is patent. There is soft tissue partially obstructing the RIGHT ostiomeatal unit. Nasal septum remains midline. No spurring. IMPRESSION: 1. No air-fluid levels within the paranasal sinuses. 2. Status post FESS. Ostiomeatal units are surgically widened. 3. Partial obstruction of the RIGHT ostiomeatal unit. 4. Mucoperiosteal thickening in the ethmoid and maxillary sinuses.
--- NOTE | 2024-03-03 12:43 | CT_ITS ---
WS: [id number] CT HEAD WITH AND WITHOUT CONTRAST HISTORY: MENTAL STATUS CHANGE TECHNIQUE: Noncontrast 3.0 mm axial images obtained from the vertex to the skull base. Additional yunier ging performed at 3.0 mm axial images status post IV contrast. Bone and soft tissue windows are revie wed. All CT scans at [facility] use at least one of these dose optimization techniques: autom ated exposure control; mA and/or kV adjustment per patient size (includes targeted exams where dose i s matched to clinical indication); or iterative reconstruction. CONTRAST: Omnipaque 350; 100 mL IV. DLP: 2731.38 mGy.cm COMPARISON: Temporal bone CT 07/28/2016 Mild cerebral atrophy and small vessel ischemic disease. No prior infarct. No midline shift or mass e ffect. Ventricles are normal size. Mild cerebellar atrophy. No enhancing mass or vascular malformations identified. Dural venous sinuses are normally enhancing. Atherosclerotic changes within the [place]. No obstruction is evident. Paranasal sinuses as visualized: No frontal sinus disease. Mild bilateral mucoperiosteal thickening t hroughout the ethmoid air cells. Prior sinus surgery. There is mucoperiosteal thickening in the maxil vanesa sinuses but no air-fluid levels. Sphenoid sinuses are negative. Mastoid air cells: Fluid in the inferior LEFT mastoid air cells. Calvarium and scalp: Intact. IMPRESSION: 1. No acute intracranial hemorrhage or edema. 2. Mild cerebral and cerebellar atrophy and small vessel ischemic disease. 3. No enhancing mass. 4. Prior funduscopic sinus surgery. Mild mucoperiosteal thickening within the maxillary sinuses and ethmoid air cells.
[2024-03-03 15:56] LABS: Blood Urea Nitrogen 13 mg/dL (8-23)
== END 2024-03-03 12:40 | disposition home or self-care (01) ==
LOC: RAD 12:39
PROVIDERS: PCP Internal Medicine; Visit Provider Internal Medicine
DX: J01.81 Other acute recurrent sinusitis (principal); G31.9 Degenerative disease of nervous system, unspecified; G31.89 Other specified degenerative diseases of nervous system
CPT/HCPCS: 70470; 70487; 82565; 84520; Q9967